=== PATIENT | male | born 1960 | race Caucasian/White ===

== ENCOUNTER 2017-06-19 14:24 | Emergency (ER) | payer OTHER ==
[~2017-06-19] VITALS: Ht 177.8 cm; Wt 83.9 kg
[~2017-06-19 14:24] MED LIST: AVALIDE 150-12.1 TA1 PO; COREG CR10 MG PO
== END 2017-06-19 17:42 | disposition home or self-care (01) ==
LOC: ER 14:24
DX: B00.2 Herpesviral gingivostomatitis and pharyngotonsillitis (principal)